=== PATIENT | male | born 1990 | race Caucasian/White ===

== ENCOUNTER 2017-04-01 10:35 | Inpatient (IN) | payer BC, OTHER ==
[~2017-04-01] VITALS: Ht 167.6 cm; Wt 72.6 kg
--- NOTE | 2017-04-01 00:21 | NUR ---
PRN Administration Ativan 2mg x1 administered for anxiety as ordered. Benadryl 50mg PRN administered due to reports of difficulty sleeping. Safety measures in place. Will continue to monitor. Addendum: 04/02/17 at 0123 by PATTI DOAN RN WRONG TIME: CORRECT TIME 04/02/2017
[2017-04-01] MEDS ORDERED: LORAZEPAM 2 MG/1 ML VIAL IM PRN (23:00)
[2017-04-01] MEDS ORDERED: CLONIDINE HCL 0.1 MG TABLET PO PRN (23:00)
[2017-04-01] MEDS ORDERED: MIRALAX 17 GM POWD.PACK PO PRN (23:00)
[2017-04-01] MEDS ORDERED: THIAMINE HCL 200 MG/2 ML VIAL IM ONE (23:00)
[2017-04-01] MEDS ORDERED: ONDANSETRON ODT 4 MG TAB.RAPDIS SL PRN (23:00)
[2017-04-01] MEDS ORDERED: LORAZEPAM 1 MG TABLET PO PRN ×2 (23:00)
[2017-04-01] MEDS ORDERED: ACETAMINOPHEN 325 MG TABLET PO PRN (23:00)
[2017-04-01] MEDS ORDERED: LOPERAMIDE HCL 2 MG CAPSULE PO PRN ×2 (23:00)
[2017-04-01] MEDS ORDERED: ONDANSETRON 4 MG/2 ML VIAL IM PRN (23:00)
[2017-04-01] MEDS ORDERED: MAG HYDROX/AL HYDROX/SIMETH 30 ML LIQUID UDC PO PRN (23:00)
--- NOTE | 2017-04-01 23:25 | NUR ---
PRE-ADMISSION NOTE Pt is a 26 y/o male, seen at intake, AAOx4, no SOB with anxiety noted at this time. Discussed with patient the admission policies of the unit. Patient is coherent and able to respond to questions appropriately. Pt is ambulatory with steady gait. Vital signs taken and as follows: BP: 139/93, P: 109, R: 18, O2: 98%, T: 98, PA: 0. Pt verbalized understanding of instructions and teachings regarding disposal of narcotic and other controlled home medications, unit protocols such as taking of vital signs Q4H and handling and disposal of contraband. Will continue with admission upon pts arrival on the unit.
--- NOTE | 2017-04-01 23:35 | NUR ---
ADMISSION NOTE Pt is a 26 y/o male admitted on 04/01/17 for ETOH/Benzo dependence, arrived on the unit at 2335. Pt reports allergies to rag week, denies history of seizures. Pt was able to provide urine drug screen. Upon admission CIWA 5, BP: 139/93, P: 109, R: 18, O2: 98%, T: 98, PA: 0. Weight 160, height 56. Pt reports his primary care provider is Dr. Girard in [place]. Pr smokes 0.5 packs of cigarettes daily, denies being hospitalized within past 30 days. Pt is able to understand and respond to all questions pertaining to his hospitalization. Substance Abuse History is as follows: 1. Xanax 3-5mg/daily daily, last intake of 5mg on 04/01/17, at this rate for the past 6 months. Pt has been using for 5 years. 2. Klonopin 1-2mg/daily, last intake of 1mg on 03/30/2017, at this rate for the past 6 months. Pt has been using for 5 years. 3. ETOH: 6-8 cans of beer, 750ml of Wine or 3-4 shots of Liquor/daily, last intake of 1 shot of LinguaLeoels on 04/01/2017, at this rate for the past 6-7 years. 4. Cocaine 2g twice a week, last intake of 8 ball on 04/01/2017, at this rate for 8 months. Pt has been using for 8 years. 5. Adderall 60-100mg daily, last intake of 80mg on 04/01/2017, at this rate for 2 years 6. Ritalin 120mg/daily, last intake of 60mg on 04/01/2017, at this rate for 2 years. 7. Marijuana 0.5g/daily, last intake of 0.5g on 04/01/2017, at this rate for the past 6 months. Pts longest sober period for 4-5 months in 2014, per pt. Pt reports this is his first time treatment. Pt states he has not been successful trying to sober on his own. Pt states, I have been planning this for some time. I know I have a problem. Pt reports all his uncles from his mothers side have substance abuse issues along with his cousin from fathers side. PMH: ADHD. Pt denies any hx of seizures. Pt did not bring any medications from home, but reports taking Advil PRN for back pain occasionally. Upon assessment, pt is AAOx4, pt is mildly intoxicated, presents with anxiety, skin is flushed, and reports mild body aches. Respirations even and unlabored. Denies SOB, chest pain, N/V/D. Bowel sounds active x 4, abdomen soft. PERRLA. Skin intact, no open wounds noted. Pt denies SI/HI. Educational information provided and left at bedside. Pt oriented to room and encouraged to notify staff with any concerns. Safety measures in place. Call light within reach, side rails up x 2, bed locked and in low position. Will continue to monitor.
[2017-04-01 23:50] LABS: BASOPHILS # (AUTO) 0.2 K/uL (0.0-8.0); BASOPHILS % (AUTO) 1.4 % (0.0-2.0); EOSINOPHILS # (AUTO) 0.3 K/uL (0.0-0.7); EOSINOPHILS % (AUTO) 2.6 % (0.0-7.0); HEMOGLOBIN 16.4 G/DL (14.0-18.0); LYMPHOCYTES # (AUTO) 3.4 K/UL (0.8-4.8); LYMPHOCYTES % (AUTO) 26.8 % (20.5-51.5); MEAN CORPUSCULAR HEMOGLOBIN 30.8 UUG (27.0-31.0); MEAN CORPUSCULAR HGB CONC 34 g/dL (32.0-37.0); MEAN CORPUSCULAR VOLUME 91.9 FL (82.0-92.0); MONOCYTES # (AUTO) 0.9 K/UL (0.1-1.30); MONOCYTES % (AUTO) 7.3 % (0.0-11.0); NEUTROPHILS # (AUTO) 7.7 K/UL (1.8-8.9); NEUTROPHILS % (AUTO) 61.9 % (38.5-71.5); PLATELET COUNT (AUTO) 313 K/UL (150-450); RED BLOOD CELL COUNT(AUTO) 5.33 MIL/UL (4.7-6.1); WHITE BLOOD COUNT (AUTO) 12.5 K/UL (4.0-11.2)
[2017-04-01 23:56] LABS: BILIRUBIN,TOTAL 0.4 mg/dL (0.2-1.0); CREATININE 1.4 mg/dL (0.6-1.3); MAGNESIUM 2.2 mg/dL (1.8-2.4); POTASSIUM 3.9 mmol/L (3.5-5.1); TOTAL PROTEIN, SERUM 8.4 g/dL (6.4-8.2)
[2017-04-02] VITALS: BP 139/93
[2017-04-02 00:13] LABS: *AMPHETAMINE, URINE NEGATIVE (NEGATIVE); *BARBITURATE, URINE NEGATIVE (NEGATIVE); *CANNABINOID, URINE NEGATIVE (NEGATIVE); *COCCAINE, URINE POSITIVE (NEGATIVE); *OPIATE, URINE NEGATIVE (NEGATIVE); *PHENCYCLIDINE SCREEN,URINE NEGATIVE (NEGATIVE)
[2017-04-02] MEDS: diphenhydrAMINE 50 MG CAPSULE PO PRN ×2 (00:21→23:05)
--- NOTE | 2017-04-02 00:21 | NUR ---
PRN Administration Ativan 2mg x1 administered for anxiety as ordered. Benadryl 50mg PRN administered due to reports of difficulty sleeping. Safety measures in place. Will continue to monitor.
[2017-04-02] MEDS ORDERED: LORAZEPAM 1 MG TABLET PO ONE (00:30)
[2017-04-02] MEDS ORDERED: LORAZEPAM 1 MG TABLET ONE (00:33)
[2017-04-02] MEDS ORDERED: diphenhydrAMINE 50 MG CAPSULE ONE (00:34)
--- NOTE | 2017-04-02 01:21 | NUR ---
PRN Reassessment Upon reassessment, pt is resting in bed with eyes closed, respirations even/unlabored. Safety measures in place, will continue to monitor.
[2017-04-02] MEDS ORDERED: IBUP200C5 PO (01:34)
[2017-04-02 04:00] VITALS: BP 132/84
--- NOTE | 2017-04-02 04:00 | NUR ---
Vital Signs/CIWA deferred BP 132/84, pulse 80, resp 18, SpO2 99% room air, temp 97.8, no pain CIWA deferred due to pt sleeping, to assess while pt is awake as ordered. Safety measures in place, will continue to monitor.
--- NOTE | 2017-04-02 07:00 | NUR ---
End of Shift Pt is a 26 year old male admitted for ETOH/benzo dependence. Pt reports using Xanax 3-5mg/daily daily, Klonopin 1-2mg/daily, ETOH: 6-8 cans of beer, 750ml of Wine or 3-4 shots of Liquor/daily, Cocaine 2g twice a week, Adderall 60-100mg daily, Ritalin 120mg/daily and Marijuana 0.5g/daily. Pt reports allergies to Rag weed, fall/seizure precautions (no hx of seizures), regular diet and full code. PMH: ADHD. During shift, CIWA 5, Ativan 2mg x1 administered for anxiety as ordered. Benadryl 50mg PRN administered for sleep. Slept for 5 hours, intake of 550 ml PO, void x1 and stool x0. Safety measures in place, call light within reach, side rails up x2, bed locked and in low position. Endorsed to day shift nurse.
--- NOTE | 2017-04-02 07:56 | NUR ---
START OF SHIFT NOTE: Report received from night warehouse manager nurse. Pt is a 26 y/o male admitted on 04/01/17 for ETOH/Benzo dependence Pt is on prn medication at this time. Pt is alert and oriented X4. Color good, skin warm and dry. Respirations even and unlabored. Resting in bed. Safety precautions observed. Call light within reach. Will continue to monitor.
[2017-04-02 08:09] VITALS: BP 132/84
[2017-04-02] MEDS ORDERED: TUBERCULIN,PURIF.PROT.DERIV. 5 TU/0.1 ML TEST ID ONE (09:00)
--- NOTE | 2017-04-02 09:00 | NUR ---
QUENTIN WOODSON 1 Pt states "I feel pretty good."
[2017-04-02] MEDS: FOLIC ACID 1 MG TABLET PO SCH (09:26)
[2017-04-02] MEDS: THIAMINE HCL 100 MG TABLET PO SCH (09:26)
[2017-04-02] MEDS: MULTIVITAMINS,THERAPEUTIC TABLET PO SCH (09:26)
[2017-04-02] MEDS ORDERED: DIAZEPAM 5 MG TABLET PO PRN (11:30)
[2017-04-02] MEDS ORDERED: DIAZEPAM 10 MG TABLET PO PRN ×2 (11:30)
[2017-04-02 12:50] VITALS: BP 116/67
[2017-04-02] MEDS: DIAZEPAM 10 MG TABLET PO SCH ×3 (13:00→20:45)
--- NOTE | 2017-04-02 13:38 | NUR ---
1300 dose of Valium was held due to pt sleeping. Dr. Arredondo notified.
--- NOTE | 2017-04-02 17:00 | NUR ---
Pt still sleeping
--- NOTE | 2017-04-02 17:30 | NUR ---
VSS CIWA 1 Valium taper initiated.
[2017-04-02 17:48] VITALS: BP 116/67
--- NOTE | 2017-04-02 18:43 | NUR ---
END OF SHIFT NOTE: Report given to shift superintendent caustic cresylate nurse . Pt is a 26 y/o male admitted on 04/01/17 for ETOH/Benzo dependence Pt started a 5 day Valium taper. Last CIWA 1 @ 1700. 1300 dose held due to pt sleeping. No prn's given. Pt is alert and oriented X4. Color good, skin warm and dry. Respirations even and unlabored. Resting in bed. Safety precautions observed. Call light within reach.
[2017-04-02 20:00] VITALS: BP 136/84
--- NOTE | 2017-04-02 20:00 | NUR ---
Start of Shift Pt is a 26 year old male admitted for ETOH/benzo dependence, placed on Valium taper. Pt reported using Xanax 3-5mg/daily, Klonopin 1-2mg/daily, ETOH: 6-8 cans of beer, 750ml of Wine or 3-4 shots of Liquor/daily, Cocaine 2g twice a week, Adderall 60-100mg daily, Ritalin 120mg/daily and Marijuana 0.5g/daily. Pt reports allergies to Ragweed, fall/seizure precautions (no hx of seizures), regular diet and full code. PMH: ADHD. Upon assessment, pt reports feeling anxious, skin clammy noted with sweat, reports chills and feeling fatigue respirations even/unlabored, denies SOB/chest pain, denies n/v/d, medications due, Safety measures in place, call light within reach, side rails up x2, bed locked and in low position. Will continue to monitor.
[2017-04-02] MEDS: GABAPENTIN 300 MG CAPSULE PO SCH (20:45)
--- NOTE | 2017-04-02 23:08 | NUR ---
PRN Administration Pt reports muscle aches, rated 4/10 and requests aid for sleep. Motrin 400mg PRN and Benadryl 50mg PRN administered. Safety measures in place, will continue to monitor.
[2017-04-02] MEDS: IBUPROFEN 400 MG TABLET PO PRN (23:13)
[2017-04-03] VITALS: BP 132/94
--- NOTE | 2017-04-03 | NUR ---
PRN Reassessment/CIWA deferred Upon reassessment, pt is resting, eyes closed respirations even/unlabored. BP 132/94, pulse 88, resp 18, temp 97.9 CIWA deferred due to pt sleeping, to assess while pt is awake as ordered. Safety measures in place, will continue to monitor. Addendum: 04/03/17 at 0444 by PATTI DOAN RN SpO2 99% room air
[2017-04-03 04:00] VITALS: BP 130/84
--- NOTE | 2017-04-03 04:00 | NUR ---
PRN Reassessment/CIWA deferred Upon reassessment, pt is resting, eyes closed respirations even/unlabored. BP 130/84, pulse 79, resp 16, SpO2 99% room air, temp 98.1 CIWA deferred due to pt sleeping, to assess while pt is awake as ordered. Safety measures in place, will continue to monitor.
--- NOTE | 2017-04-03 07:00 | NUR ---
End of Shift Pt is a 26 year old male admitted for ETOH/benzo dependence, placed on Valium taper. Pt reported using Xanax 3-5mg/daily, Klonopin 1-2mg/daily, ETOH: 6-8 cans of beer, 750ml of Wine or 3-4 shots of Liquor/daily, Cocaine 2g twice a week, Adderall 60-100mg daily, Ritalin 120mg/daily and Marijuana 0.5g/daily. Pt reports allergies to Ragweed, fall/seizure precautions (no hx of seizures), regular diet and full code. PMH: ADHD. During shift, pt reported feeling anxious, skin clammy noted with sweat, reported chills and feeling fatigue scheduled taper medications administered, CIWA 3. Motrin 400mg PRN and Benadryl 50mg PRN administered for lower back pain. Pt slept for 6 hours, intake of 1096 ml PO, voids x3 and stool x0. Safety measures in place, call light within reach, side rails up x2, bed locked and in low position. Endorsed to day shift nurse.
[2017-04-03 07:07] LABS: HEPATITIS B SURFACE AG Negative (Negative)
--- NOTE | 2017-04-03 07:20 | NUR ---
Start of Shift Endorsement received from nightshift nurse. Pt is a 26 y/o male admitted for Benzo dependence. PT has been placed on a 5 day Valium taper. Pt is tolerating the taper AEB CIWA 3 at 1999. Pt received PRN Motrin and Benadryl. Pt reports sleeping 6 hours. . PT is alert and oriented x4. Pt is in STABLE condition at this time. Remains compliant with medication and diet regimen. All needs have been met, All safety measures in place per hospital policy. Bed in lowest position, side rails up x2, call-light within reach. Will continue to monitor
[2017-04-03 08:00] VITALS: BP 118/79
[2017-04-03] MEDS: MULTIVITAMINS,THERAPEUTIC TABLET PO SCH (08:56)
[2017-04-03] MEDS: DIAZEPAM 10 MG TABLET PO SCH ×3 (08:56→21:38)
[2017-04-03] MEDS: THIAMINE HCL 100 MG TABLET PO SCH (08:56)
[2017-04-03] MEDS: FOLIC ACID 1 MG TABLET PO SCH (08:56)
[2017-04-03] MEDS: GABAPENTIN 300 MG CAPSULE PO SCH ×2 (08:56→21:38)
[2017-04-03 12:00] VITALS: BP 128/82
[2017-04-03 16:45] VITALS: BP 143/88
--- NOTE | 2017-04-03 18:23 | NUR ---
End of Shift Endorsement given to nightshift nurse. Pt is a 26 y/o male admitted for Benzo dependence. PT has been placed on a 5 day Valium taper. Pt is tolerating the taper AEB CIWA 2 at 1600. Pt did not receive any PRN medications. Pt participated in groups and activities. Pt is tolerating the detox process well. Intake: 1040ml, Void x4, BM x1. PT is alert and oriented x4. Pt is in STABLE condition at this time. Remains compliant with medication and diet regimen. All needs have been met, All safety measures in place per hospital policy. Bed in lowest position, side rails up x2, call-light within reach. Will continue to monitor
--- NOTE | 2017-04-03 19:20 | NUR ---
Start of Shift Patient Received. Patient is a 26 year old male that was admitted on 04/01/17 for ETOH and Benzo Dependence under the care of Dr. Arredondo and continues on a 5 day Valium taper. Patient verbalizes allergies to Rag weed, wishes to be full code, following a Regular diet, placed on fall and seizure precautions, skin noted intact. Patient verbalized past medical history as ADHD. No history of seizures noted. Per endorsement, patient has been noted to be compliant with plan of care as is tolerating taper medication well. Last noted CIWA 2. All needs attended to promptly. Will continue plan of care as ordered.
[2017-04-03 20:20] VITALS: BP 129/89
[2017-04-04 00:14] VITALS: BP 131/87
[2017-04-04 04:51] VITALS: BP 121/84
--- NOTE | 2017-04-04 07:17 | NUR ---
Start of Shift Endorsement received from nightshift nurse. Pt is a 26 y/o male admitted for Benzo dependence. PT has been placed on a 5 day Valium taper. Pt is tolerating the taper AEB CIWA 4 at 0400. Pt did not receive any PRN medications. Pt reports sleeping 5 hours. . PT is alert and oriented x4. Pt is in STABLE condition at this time. Remains compliant with medication and diet regimen. All needs have been met, All safety measures in place per hospital policy. Bed in lowest position, side rails up x2, call-light within reach. Will continue to monitor
--- NOTE | 2017-04-04 07:26 | NUR ---
End of Shift Patient is in bed sleeping but easily aroused to verbal stimuli. Breathing even and non labored. Patient is a 26 year old male that was admitted on 04/01/17 for ETOH and Benzo Dependence under the care of Dr. Arredondo and continues on a 5 day Valium taper. Patient verbalizes allergies to Rag weed, Full Code, Regular diet, placed on fall and seizure precautions, skin noted intact. Patient verbalized past medical history as ADHD. No history of seizures noted. No PRN medications administered. Patient has been noted to be compliant with plan of care as is tolerating taper medication well. Last noted CIWA 4. All needs attended to promptly. Will endorse to continue plan of care as ordered.
[2017-04-04 08:00] VITALS: BP 141/95
[2017-04-04 08:31] LABS: BASOPHILS # (AUTO) 0.1 K/uL (0.0-8.0); BASOPHILS % (AUTO) 0.9 % (0.0-2.0); EOSINOPHILS # (AUTO) 0.3 K/uL (0.0-0.7); EOSINOPHILS % (AUTO) 2.8 % (0.0-7.0); HEMATOCRIT 46.5 % (40-50); LYMPHOCYTES # (AUTO) 3.2 K/UL (0.8-4.8); LYMPHOCYTES % (AUTO) 26.6 % (20.5-51.5); MEAN CORPUSCULAR HEMOGLOBIN 31.5 UUG (27.0-31.0); MEAN CORPUSCULAR HGB CONC 34 g/dL (32.0-37.0); MEAN CORPUSCULAR VOLUME 91.6 FL (82.0-92.0); MONOCYTES # (AUTO) 0.9 K/UL (0.1-1.30); MONOCYTES % (AUTO) 7.2 % (0.0-11.0); NEUTROPHILS # (AUTO) 7.5 K/UL (1.8-8.9); NEUTROPHILS % (AUTO) 62.5 % (38.5-71.5); PLATELET COUNT (AUTO) 284 K/UL (150-450); RED BLOOD CELL COUNT(AUTO) 5.08 MIL/UL (4.7-6.1)
[2017-04-04 08:37] LABS: CREATININE 1.5 mg/dL (0.6-1.3); MAGNESIUM 2.2 mg/dL (1.8-2.4)
[2017-04-04] MEDS: GABAPENTIN 300 MG CAPSULE PO SCH ×3 (08:50→21:17)
[2017-04-04] MEDS: FOLIC ACID 1 MG TABLET PO SCH (08:50)
[2017-04-04] MEDS: THIAMINE HCL 100 MG TABLET PO SCH (08:50)
[2017-04-04] MEDS: MULTIVITAMINS,THERAPEUTIC TABLET PO SCH (08:50)
[2017-04-04] MEDS ORDERED: DIAZEPAM 5 MG TABLET PO SCH (09:00)
[2017-04-04 12:00] VITALS: BP 130/94
[2017-04-04] MEDS: DIAZEPAM 5 MG TABLET PO SCH ×2 (15:00→21:18)
--- NOTE | 2017-04-04 15:00 | NUR ---
Scheduled Valium Pt refused Valium, stating, "it makes me sleepy and dizzy during the day, I only want it at night to help me sleep". Addendum: 04/04/17 at 1725 by JESSICA HORTON RN Educated pt on dangerous of withdrawal caused seizures and importance of taking the Valium. Pt reports understanding but reports not wanting to take it during the day.
[2017-04-04 16:00] VITALS: BP 138/93
--- NOTE | 2017-04-04 16:50 | NUR ---
Client was prompted by therapist to attend daily group sessions at 11am and 3:30pm. Client related that he would participate in daily groups.
--- NOTE | 2017-04-04 18:36 | NUR ---
End of Shift Endorsement given to nightshift nurse. Pt is a 26 y/o male admitted for Benzo dependence. PT has been placed on a 5 day Valium taper. Pt is tolerating the taper AEB CIWA 2 at 1600. Pt did not receive any PRN medications. Pt participated in groups and activities. Pt is tolerating the detox process well. Pt refused midday dose of Valium, stating "it makes me too drowsy and tired, I don't want to take it, I'll take the night dose". Educated pt on dangerous of skipping valium dose and possible s/e such as seizures. Pt reported understanding. Intake: 1740ml, Void x4, BM x1. PT is alert and oriented x4. Pt is in STABLE condition at this time. Remains compliant with medication and diet regimen. All needs have been met, All safety measures in place per hospital policy. Bed in lowest position, side rails up x2, call-light within reach. Will continue to monitor
--- NOTE | 2017-04-04 19:15 | NUR ---
Start of Shift Patient is in activities room participating in group activities. Patient is a 26 year old male that was admitted on 04/01/17 for ETOH and Benzo Dependence under the care of Dr. Arredondo and continues on a 5 day Valium taper. Patient verbalizes allergies to Rag weed, Full Code, Regular diet, placed on fall and seizure precautions, skin noted intact. Patient verbalized past medical history as ADHD. No history of seizures noted. Per endorsement, Patient refused 1500 taper dose of Valium. Last noted CIWA 2. All needs attended to promptly. Will continue plan of care as ordered.
[2017-04-04 20:21] VITALS: BP 151/94
[2017-04-04] MEDS: diphenhydrAMINE 50 MG CAPSULE PO PRN (23:07)
--- NOTE | 2017-04-04 23:07 | NUR ---
PRN Medication administration Patient verbalizing inability of falling asleep. PRN Benadryl administered as per order. Will continue to monitor.
--- NOTE | 2017-04-05 | NUR ---
PRN Medication Reassessment Patient is in bed sleeping. Breathing even and non labored. Patient was given PRN Benadryl with medication noted to be effective as evidence by patient sleeping well with no discomfort noted. Will continue to monitor.
[2017-04-05 00:13] VITALS: BP 125/84
[2017-04-05 04:31] VITALS: BP 127/79
--- NOTE | 2017-04-05 07:03 | NUR ---
End of Shift Patient is in bed sleeping. Breathing even and non labored. Patient is a 26 year old male that was admitted on 04/01/17 for ETOH and Benzo Dependence under the care of Dr. Arredondo and continues on a 5 day Valium taper. Patient verbalizes allergies to Rag weed, Full Code, Regular diet, placed on fall and seizure precautions, skin noted intact. Patient received PRN Benadryl with medication noted to be effective. Last noted CIWA 3. All needs attended to promptly. Will endorse to continue plan of care as ordered.
--- NOTE | 2017-04-05 07:30 | NUR ---
START OF SHIFT Pt is a 26 yr old male, AA&Ox4. pt was admitted on 04/01/17 for Benzo/ETOH Dependence and is on 5 day Valium taper. Medication alberto well. Received report from night worker nurse. No PRN's were given during the night. Last CIWA score was 3 at 2200. Pt is currently in bed resting with respirations even and unlabored. No acute distress noted. Skin is intact, warm and dry to touch. Safety precautions observed. Call light is within reach. will continue to monitor.
[2017-04-05 08:00] VITALS: BP 130/90
[2017-04-05] MEDS ORDERED: DIAZEPAM 5 MG TABLET PO SCH (09:00)
[2017-04-05] MEDS: DIAZEPAM 5 MG TABLET PO SCH ×2 (09:35→21:49)
[2017-04-05] MEDS: GABAPENTIN 300 MG CAPSULE PO SCH ×3 (09:35→21:49)
[2017-04-05] MEDS: MULTIVITAMINS,THERAPEUTIC TABLET PO SCH (09:35)
[2017-04-05] MEDS: FOLIC ACID 1 MG TABLET PO SCH (09:35)
[2017-04-05] MEDS: THIAMINE HCL 100 MG TABLET PO SCH (09:35)
[2017-04-05 12:47] VITALS: BP 138/83
--- NOTE | 2017-04-05 12:54 | NUR ---
Client was prompted to attend group today and share his feelings of frustration with the group. Client agreed to attend.
[2017-04-05 16:00] VITALS: BP 129/90
--- NOTE | 2017-04-05 19:00 | NUR ---
END OF SHIFT Pt is a 26 yr old male, AA&Ox4. pt was admitted on 04/01/17 for Benzo/ETOH Dependence and is on 5 day Valium taper. Medication alberto well. Pt has been cooperative with plan of care and medication regimen. Pt attended group sessions that were offered during the day. No PRNs were given. Last CIWA score was 1 at 1600. Pt c/o mild anxiety but is able to cope with anxiety level. Skin is intact, warm and dry to touch. No tremors seen or felt. Pt denies any n/v. encouraged increase fluid intake. Safety precautions observed. Call light is within reach.
--- NOTE | 2017-04-05 19:10 | NUR ---
Start of Shift Patient is in activities room participating in group activities. Patient is a 26 year old male that was admitted on 04/01/17 for ETOH and Benzo Dependence under the care of Dr. Arredondo and continues on a 5 day Valium taper. Patient verbalizes allergies to Rag weed, Full Code, Regular diet, placed on fall and seizure precautions, skin noted intact. Per endorsement, patient noted to be compliant with plan of care with No PRN medications administered. Last noted CIWA 1. All needs attended to promptly. Will continue plan of care as ordered.
[2017-04-05 20:55] VITALS: BP 139/90
[2017-04-05] MEDS: diphenhydrAMINE 50 MG CAPSULE PO PRN (21:49)
--- NOTE | 2017-04-05 21:52 | NUR ---
PRN Medication Administration Patient verbalizing inability of falling asleep. PRN Benadryl administered as per order. Will continue to monitor.
--- NOTE | 2017-04-05 22:45 | NUR ---
PRN Medication Reassessment Patient is noted in bed sleeping. Breathing even and non labored. Patient was given PRN Benadryl for sleep with medication noted to be effective as evidence by patient sleeping with no discomfort noted. No facial grimacing noted. Will continue to monitor.
[2017-04-06] VITALS: BP 128/72
[2017-04-06 04:15] VITALS: BP 119/75
--- NOTE | 2017-04-06 07:24 | NUR ---
End of Shift Patient is in bed sleeping but easily aroused to verbal stimuli. Breathing even and non labored. Patient is a 26 year old male that was admitted on 04/01/17 for ETOH and Benzo Dependence under the care of Dr. Arredondo and continues on a 5 day Valium taper. Patient verbalizes allergies to Rag weed, Full Code, Regular diet, placed on fall and seizure precautions, skin noted intact. Patient was given PRN Benadryl with medication noted to be effective. Last noted CIWA 8. All needs attended to promptly. Will endorse to continue plan of care as ordered.
[2017-04-06 08:00] VITALS: BP 116/60
--- NOTE | 2017-04-06 08:15 | NUR ---
START OF SHIFT: RECEIVED PT A/O X 4. HE PRESENTS WITH AN ANXIOUS MOOD AND CONGRUENT AFFECT. HE REPORTS SOME MILD ANXIETY ,RESTLESSNESS AND SWEATS. CIWA 4. VALIUM TAPER IN PROGRESS . ENCOURAGED INCREASED FLUIDS TO ASSIST IN FACILITATING DETOX PROCESS. WILL CONTINUE TO MONITOR AND MANAGE S/S OF W/D.
[2017-04-06] MEDS: DIAZEPAM 2 MG TABLET PO SCH ×2 (08:46→22:09)
[2017-04-06] MEDS: FOLIC ACID 1 MG TABLET PO SCH (08:47)
[2017-04-06] MEDS: GABAPENTIN 300 MG CAPSULE PO SCH ×3 (08:47→22:10)
[2017-04-06] MEDS: THIAMINE HCL 100 MG TABLET PO SCH (08:47)
[2017-04-06] MEDS: MULTIVITAMINS,THERAPEUTIC TABLET PO SCH (08:47)
[2017-04-06] MEDS ORDERED: DIAZEPAM 5 MG TABLET PO SCH ×2 (09:00)
[2017-04-06 12:00] VITALS: BP 151/89
[2017-04-06 16:00] VITALS: BP 149/94
--- NOTE | 2017-04-06 18:44 | NUR ---
END OF SHIFT: PT CONTINUES ON VALIUM TAPER. LAST CIWA 2. HE ATTENDED SOME GROUPS AND SLEPT THIS AFTERNOON. HE INTERACTS WITH PEERS AND ATTENDS GROUPS. HE IS COMPLIANT WITH INCREASED FLUIDS. NO PRNS GIVEN. WILL CONTINUE TO MONITOR, Addendum: 04/06/17 at 1847 by BLAZE MANRIQUE RN CORRECTION CIWA 3.WILL PASS SHIFT REPORT TO [facility] NIGHT NURSE.
[2017-04-06 20:00] VITALS: BP 139/96
--- NOTE | 2017-04-06 20:05 | NUR ---
START OF SHIFT Received report from day shift nurse. Pt attended a group meeting and returned to his room after. He is a 26 yo male admitted to [facility] on 04/01 for BZD and ETOH dependence. He is A&O x4 and ambulatory. Allergic to ragweed pollen, full code status, and on a regular diet. PMH of ADHD. On admission he reported using xanax 3-5mg per day, klonopin 1-2mg per day, beer 6-8 cans or wine 750mL or liquor 3-4 shots daily, cocaine 2 grams per weeks, adderall 60-100mg per day, Ritalin 120mg per day, and marijuana. 5 day Valium taper started on 04/02. Taper is working well to manage withdrawal symptoms. Fall and seizure precautions in place. Bed is down with call light in reach.
[2017-04-06] MEDS: diphenhydrAMINE 50 MG CAPSULE PO PRN (22:09)
--- NOTE | 2017-04-06 22:10 | NUR ---
PRN Benadryl Pt reports inability to sleep. PRN Benadryl administered.
[2017-04-07] VITALS: BP 122/66
--- NOTE | 2017-04-07 | NUR ---
0000 CIWA deferred CIWA ordered Q4HWA. Pt is lying in bed resting with eyes closed. Respirations even and unlabored. Vital signs obtained. Safety measures in place.
--- NOTE | 2017-04-07 04:00 | NUR ---
0400 Vitals refused/CIWA deferred Pt refused to be woken for 0400 vitals. Pt is lying in bed resting with eyes closed. Respirations even and unlabored. CIWA ordered Q4HWA. Safety measures in place.
--- NOTE | 2017-04-07 07:20 | NUR ---
END OF SHIFT Report provided to day shift nurse. Pt is lying in bed resting. He is a 26 yo male admitted to [facility] on 04/01 for BZD and ETOH dependence. He is A&O and ambulatory. Allergic to ragweed pollen, full code status, and on a regular diet. PMH of ADHD. On admission he reported using xanax 3-5mg per day, klonopin 1-2mg per day, beer 6-8 cans or wine 750mL or liquor 3-4 shots daily, cocaine 2 grams per weeks, adderall 60-100mg per day, Ritalin 120mg per day, and marijuana. He started a 5 day Valium taper on 04/02. PRN Benadryl administered. Last CIWA was 2. He drank 1000mL and slept for 7 hours. Fall and seizure precautions in place. Bed is down with call light in reach.
--- NOTE | 2017-04-07 07:30 | NUR ---
start of shift note: received pt from night court magistrate nurse, pt is in stable condition at this time. pt without complaints of pain or discomfort. pt is admitted to [facility] for etoh/benzo withdrawal/dependence. pt's last ciwa 2. will continue to monitor pt fo any changes and continue to meet pts needs
[2017-04-07] MEDS: THIAMINE HCL 100 MG TABLET PO SCH (08:56)
[2017-04-07] MEDS: MULTIVITAMINS,THERAPEUTIC TABLET PO SCH (08:56)
[2017-04-07] MEDS: GABAPENTIN 300 MG CAPSULE PO SCH ×3 (08:56→20:59)
[2017-04-07] MEDS: FOLIC ACID 1 MG TABLET PO SCH (08:56)
[2017-04-07 09:00] VITALS: BP 114/64
[2017-04-07] MEDS ORDERED: DIAZEPAM 2 MG TABLET PO SCH (09:00)
[2017-04-07 13:00] VITALS: BP 141/81
--- NOTE | 2017-04-07 13:45 | NUR ---
Activity Group Note: Client participated in "Demetri" and "Sequence" activity. Intervention goal was to increase task focus and leisure skills. Client was hesitant to participate in "Demetri" stating, "I think I will just watch." However, client was willing to participate after observing for ~10 minutes. Client's mood appeared to be euthymic with normal affect. Client had a coherent and goal-directed thought process as he was able to understand, complete, and teach the task to his peers. Client stated, "This is one of the best times of the day." Client benefits from leisure activities and social interaction with peers. heater worker will continue to encourage participation.
[2017-04-07 17:24] VITALS: BP 140/97
--- NOTE | 2017-04-07 19:00 | NUR ---
END OF SHIFT NOTE: PT IS IN STABLE CONDITION AT THIS TIME NO S/S OF PAIN OR DISCOMFORT, PT IS ADMITTED TO [facility] FOR BENZO AND ETOH WITHDRAWAL/DEPENDENCE. PT TOLERATED VALIUM TAPER WELL NO A/R NOTED. PTS LAST CIWA 2 WILL ENDORSE PT TO RECONCILER NURSE
[2017-04-07 20:00] VITALS: BP 153/91
--- NOTE | 2017-04-07 20:05 | NUR ---
START OF SHIFT Received report from day shift nurse. Pt attended a group meeting and returned to his room after. He is a 26 yo male admitted to [facility] on 04/01 for BZD and ETOH dependence. He is A&O x4 and ambulatory. Allergic to ragweed pollen, full code status, and on a regular diet. PMH of ADHD. On admission he reported using xanax 3-5mg per day, klonopin 1-2mg per day, beer 6-8 cans or wine 750mL or liquor 3-4 shots daily, cocaine 2 grams per weeks, adderall 60-100mg per day, Ritalin 120mg per day, and marijuana. 5 day Valium taper was completed today and he is scheduled for discharge tomorrow. He reports a mild headache. No other s/s of withdrawal. Fall and seizure precautions in place. Bed is down with call light in reach.
[2017-04-07] MEDS ORDERED: HYDR25CA PO (20:08)
[2017-04-07] MEDS ORDERED: GABA-534 PO (20:08)
[2017-04-07] MEDS ORDERED: IBUP-1953 PO (20:08)
[2017-04-07] MEDS ORDERED: DIPH50CA37 PO (20:08)
[2017-04-07] MEDS: IBUPROFEN 400 MG TABLET PO PRN (20:59)
--- NOTE | 2017-04-07 21:00 | NUR ---
PRN Motrin Pt c/o headache 09/16. PRN Motrin administered.
--- NOTE | 2017-04-07 22:00 | NUR ---
PRN Motrin reassessment PRN Motrin effective. Pt reports headache is relieved.
[2017-04-07] MEDS: diphenhydrAMINE 50 MG CAPSULE PO PRN (22:03)
--- NOTE | 2017-04-07 22:05 | NUR ---
PRN Benadryl Pt reports inability to sleep. PRN Benadryl administered.
--- NOTE | 2017-04-07 23:05 | NUR ---
PRN Benadryl reassessment PRN Benadryl effective. Pt is lying in bed resting with eyes closed. Respirations even and unlabored. Safety measures in place.
[2017-04-08] VITALS: BP 103/50
--- NOTE | 2017-04-08 | NUR ---
0000 CIWA deferred CIWA ordered Q4HWA. Pt is lying in bed resting with eyes closed. Respirations even and unlabored. Vital signs obtained. Safety measures in place.
--- NOTE | 2017-04-08 07:00 | NUR ---
END OF SHIFT Report provided to day shift nurse. Pt is lying in bed resting. He is a 26 yo male admitted to [facility] on 04/01 for BZD and ETOH dependence. He is A&O x4 and ambulatory. Allergic to ragweed pollen, full code status, and on a regular diet. PMH of ADHD. On admission he reported using xanax 3-5mg per day, klonopin 1-2mg per day, beer 6-8 cans or wine 750mL or liquor 3-4 shots daily, cocaine 2 grams per weeks, adderall 60-100mg per day, Ritalin 120mg per day, and marijuana. 5 day Valium taper was completed and he is scheduled for discharge today. PRN Motrin and Benadryl administered. Last CIWA was 2. He drank 1200mL and slept for 6 hours. Fall and seizure precautions in place. Bed is down with call light in reach.
--- NOTE | 2017-04-08 07:33 | NUR ---
Start of shift note; Received report from night nurse. Patient is a 26 year old male admitted on 04/01/17 for Benzo /ETOH dependence. Patient was placed on a 5 day Valium taper, completed treatment without any adverse reactions. Patient reported history of ADHD. Patient noted to be on full code status and on a regular diet. Patient is medically cleared for discharge today. All safety measures secured. Will continue to monitor patient.
[2017-04-08 08:00] VITALS: BP 120/90
[2017-04-08] MEDS: THIAMINE HCL 100 MG TABLET PO SCH (08:09)
[2017-04-08] MEDS: GABAPENTIN 300 MG CAPSULE PO SCH (08:09)
[2017-04-08] MEDS: MULTIVITAMINS,THERAPEUTIC TABLET PO SCH (08:09)
[2017-04-08] MEDS: FOLIC ACID 1 MG TABLET PO SCH (08:09)
--- NOTE | 2017-04-08 09:24 | NUR ---
Discharge note; Patient is AOX4. Patient is medically cleared for discharge. All patient's valuables and belongings given to patient. Patient completed treatment without any adverse reactions. Patient left on 04/08/17 at 0924. Met all needs.
== END 2017-04-08 09:24 | disposition other institution (70) | DRG 895 ==
LOC: SRC 22:32
PROVIDERS: ADMIT Internal Medicine; ATTEND Internal Medicine
PROC: HZ2ZZZZ Detoxification Services for Substance Abuse Treatment (ICD-10-PCS; principal; 2017-04-01)
PROC: HZ41ZZZ Group Counseling for Substance Abuse Treatment, Behavioral (ICD-10-PCS; 2017-04-03)
DX: F10.232 Alcohol dependence with withdrawal with perceptual disturbance (principal); N17.9 Acute kidney failure, unspecified; E87.3 Alkalosis; F15.23 Other stimulant dependence with withdrawal; F13.232 Sedative, hypnotic or anxiolytic dependence with withdrawal with perceptual disturbance; F14.10 Cocaine abuse, uncomplicated; F12.10 Cannabis abuse, uncomplicated; Y90.9 Presence of alcohol in blood, level not specified; F17.210 Nicotine dependence, cigarettes, uncomplicated; F90.9 Attention-deficit hyperactivity disorder, unspecified type; E86.0 Dehydration; I15.9 Secondary hypertension, unspecified; Z91.89 Other specified personal risk factors, not elsewhere classified; Z82.49 Family history of ischemic heart disease and other diseases of the circulatory system; Z81.1 Family history of alcohol abuse and dependence; D72.823 Leukemoid reaction; F12.90 Cannabis use, unspecified, uncomplicated; F41.9 Anxiety disorder, unspecified
CPT/HCPCS: 36415; 70030-TC; 80307; 80346; 80353; 83735; 85025; 86592; 86705; 86803; 87340; 87806; G0480; Q0163